=== PATIENT | female | born 1965 | race Caucasian/White ===

== ENCOUNTER 2023-11-14 08:37 | Day surgery (SDC) | payer MEDICAID, OTHER ==
[~2023-11-14] VITALS: Ht 162.6 cm; Wt 63.5 kg
[2023-11-14] MEDS ORDERED: MIDAZOLAM HCL 5 MG/5 ML VIAL ONE ×2 (09:28→09:33)
[2023-11-14] MEDS ORDERED: MEPERIDINE 100 MG INJ. 100 MG/ML VIAL ONE ×2 (09:28→09:33)
[2023-11-14] MEDS ORDERED: DIPHENHYDRAMINE INJ 50 MG/ML VIAL ONE (09:32)
[2023-11-14 11:56] VITALS: BP_SYST 131; PULSE 74; RESP 18; TEMP 97.8; O2SAT 97
== END 2023-11-14 10:20 | disposition home or self-care (01) ==
LOC: SDS 08:37 → EDSEX 09:30 → SMU 09:54 → SDS 10:20
PROVIDERS: ATTEND Internal Medicine
DX: R19.4 Change in bowel habit (principal); K63.89 Other specified diseases of intestine; K57.92 Diverticulitis of intestine, part unspecified, without perforation or abscess without bleeding; K57.30 Diverticulosis of large intestine without perforation or abscess without bleeding; K64.8 Other hemorrhoids; K21.9 Gastro-esophageal reflux disease without esophagitis; M19.90 Unspecified osteoarthritis, unspecified site; Z79.899 Other long term (current) drug therapy; Z86.0100 Personal history of colon polyps, unspecified
CPT/HCPCS: 45380; 99152; 88305; G0378; J2250; J2175; J1200